=== PATIENT | male | born 1960 | race Caucasian/White ===

== ENCOUNTER 2017-02-22 09:44 | Emergency (ER) | payer OTHER, BC ==
[~2017-02-22] VITALS: Ht 177.8 cm; Wt 124.7 kg
[~2017-02-22 09:44] MED LIST: CYCLOBENZAPRINE10 MG PO; HYZAAR 100-251 EACH PO; NORCO 7.5-3251 EACH PO; OMEPRAZOLE20 MG PO; VENTOLIN HFA18 GM IH
[2017-02-22] MEDS ORDERED: HYDROCODON-ACE1 EAC8 PO (10:56)
[2017-02-22] MEDS ORDERED: MEDROL4 M1 PO (11:37)
== END 2017-02-22 12:06 | disposition home or self-care (01) ==
LOC: ED 09:44
DX: M54.5 Low back pain (principal); I10 Essential (primary) hypertension; K21.9 Gastro-esophageal reflux disease without esophagitis; Z79.899 Other long term (current) drug therapy
CPT/HCPCS: 96372; 99283; J1885

== ENCOUNTER 2020-12-09 22:49 | Emergency (ER) | payer BC ==
[~2020-12-09] VITALS: Ht 177.8 cm; Wt 120.2 kg
[~2020-12-09 22:49] MED LIST changes: +HYDROCODON-ACE1 EAC8 PO; +MEDROL4 M1 PO
[2020-12-09] MEDS ORDERED: BACTRIM DS TAB1 EACH PO (22:59)
[2020-12-09] MEDS ORDERED: HYDROCODON-ACE1 EA10 PO (22:59)
[2020-12-09] MEDS ORDERED: AUGMENTIN 875-1 EACH PO (22:59)
[2020-12-09] MEDS ORDERED: CELECOXIB200 MG PO (23:04)
[2020-12-09] MEDS ORDERED: METOPROLOL SUCC50 MG PO (23:05)
[2020-12-09] MEDS ORDERED: GABAPENTIN300 MG PO (23:05)
== END 2020-12-10 02:48 | disposition home or self-care (01) ==
LOC: ED 22:49
DX: M79.604 Pain in right leg (principal); M79.605 Pain in left leg; I10 Essential (primary) hypertension; K21.9 Gastro-esophageal reflux disease without esophagitis; Z79.899 Other long term (current) drug therapy
CPT/HCPCS: 72131; 80053; 81001; 85025; 99284-25

== ENCOUNTER 2022-07-03 12:14 | Emergency (ER) | payer BC ==
[~2022-07-03] VITALS: Ht 177.8 cm; Wt 120.2 kg
[~2022-07-03 12:14] MED LIST changes: +AUGMENTIN 875-1 EACH PO; +BACTRIM DS TAB1 EACH PO; +CELECOXIB200 MG PO; +GABAPENTIN300 MG PO; +HYDROCODON-ACE1 EA10 PO; +METOPROLOL SUCC50 MG PO
--- OUTSIDE RECORDS SUMMARY | 2022-07-03 12:16 | XMS ---
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 Gerda VISIT COUNT (12 MO.) Kofi Tsai TOTAL 1 NOTE: Visits indicate total known visits. ED/UCC VISIT TRACKING (12 MO.) 07/03/2022 12:14 [facility] TYPE: Emergency COMPLAINT: - R KNEE PAIN INPATIENT VISIT TRACKING (12 MO.) No inpatient visits to display in this time frame [id number]
[2022-07-03] MEDS ORDERED: DOXYCYCLINE HY100 MG PO (16:35)
[2022-07-03] MEDS ORDERED: CEFPROZIL500 MG PO (16:35)
== END 2022-07-03 17:01 | disposition home or self-care (01) ==
LOC: ED 12:14
DX: M70.51 Other bursitis of knee, right knee (principal); I10 Essential (primary) hypertension; K21.9 Gastro-esophageal reflux disease without esophagitis; Z79.899 Other long term (current) drug therapy
CPT/HCPCS: 10060; 99283-25

== ENCOUNTER 2023-01-22 10:01 | Emergency (ER) | payer BC ==
[~2023-01-22] VITALS: Ht 177.8 cm; Wt 126.9 kg
[~2023-01-22 10:01] MED LIST changes: +CEFPROZIL500 MG PO; +DOXYCYCLINE HY100 MG PO
[2023-01-22] MEDS ORDERED: HYDROCODON-ACE1 EAC8 PO (10:23)
[2023-01-22 10:56] LABS: BASOPHILS 0.8 % (0-2); EOSINOPHILS 2.1 % (0-6); HEMOGLOBIN 14.7 g/dL (12.0-18.0); MCH 31.2 (27-36); MCHC 33.5 g/dl (30-36); MCV 93.1 fl (81-99); MONOCYTES 6.3 % (0-12); NEUTROPHILS 64.8 % (39-80); PLATELET COUNT 290 K/uL (140-440); RBC 4.72 M/ul (4.3-5.7); RDW 13.6 (10.5-15.0)
--- OUTSIDE RECORDS SUMMARY | 2023-01-22 11:05 | XMS | Continuity of Care Document ---
Demographics + + + | Address | [address] | | | [place] [address] | + + + | Preferred Language | Unknown | + + + | Marital Status | | + + + | Christian Affiliation | Unknown | + + + | Race | White | + + + | Ethnic Group | Not or | + + + Author + + + | Author | [facility] | + + + | Organization | [facility] | + + + | Address | [address] [facility] [address] [facility] | | | [place] [address] | + + + | Phone | | + + + Care Team Providers + + + + | Care Compliance Field Technician Name | Role | Phone | + + + + Unavailable | Unavailable | + + + + Unavailable | Unavailable | + + + + Unavailable | Unavailable | + + + + Allergies No information. Encounters No information. Functional Status No information. Immunizations No information. Medications + + + + | date | description | facility | + + + + | 2022-07-03 00:00 | DOXYCYCLINE HYCLATE | [facility] | + + + + | 2022-07-03 00:00 | CEFPROZIL | [facility] | + + + + | 2022-07-03 00:00 | OMEPRAZOLE | [facility] | + + + + | 2022-07-03 00:00 | CELECOXIB | [facility] | + + + + | 2022-07-03 00:00 | GABAPENTIN | [facility] | + + + + | 2020-12-09 00:00 | AMOXICILLIN/POTASSIUM CLAV | [facility] | | | | | + + + + | 2022-07-03 00:00 | CYCLOBENZAPRINE HCL | [facility] | + + + + | 2017-02-22 00:00 | methylPREDNISolone | [facility] | + + + + | 2020-12-09 00:00 | | [facility] | | | SULFAMETHOXAZOLE/TRIMETHOPR | | | | IM DS | | + + + + | 2022-07-03 00:00 | HYDROCODONE | [facility] | | | BIT/ACETAMINOPHEN | | + + + + | 2020-12-09 00:00 | HYDROCODONE | [facility] | | | BIT/ACETAMINOPHEN | | + + + + | 2022-07-03 00:00 | HYDROCODONE | [facility] | | | BIT/ACETAMINOPHEN | | + + + + | 2022-07-03 00:00 | ALBUTEROL SULFATE | [facility] | + + + + | 2022-07-03 00:00 | METOPROLOL SUCCINATE | [facility] | + + + + | 2022-07-03 00:00 | | [facility] | | | LOSARTAN/HYDROCHLOROTHIAZID | | | | E | | + + + + Problems + + + + | date | description | facility | + + + + | 2017-02-22 00:00 | Acute low back pain | [facility] | + + + + | 2020 00:00 | Encounter for medical | [facility] | | | screening examination | | + + + + | 2020-12-09 00:00 | Cutaneous abscess of face | [facility] | + + + + | 2020-12-10 00:00 | Pain in both lower | [facility] | | | extremities | | + + + + | 2022-05-01 12:17:34 | Radiculopathy, lumbar | [facility] | | | region | | + + + + | 2022-07-03 00:00 | Septic infrapatellar | [facility] | | | bursitis of right knee | | + + + + Procedures No information. Results/Labs No information. Social History No information. Vital Signs + + +---------+---------+ | date | measurement | value | units | + + +---------+---------+ | 2022-07-03 00:00 | BMI | 38.0 | kg/m2 | + + +---------+---------+ | 2022-07-03 00:00 | BP_diastolic | 70 | mmHg | + + +---------+---------+ | 2022-07-03 00:00 | BP_systolic | 144 | mmHg | + + +---------+---------+ | 2022-07-03 00:00 | heart_rate | 74 | /min | + + +---------+---------+ | 2022-07-03 00:00 | height_metric | 177.8 | cm | + + +---------+---------+ | 2022-07-03 00:00 | height_standard | 70 | in | + + +---------+---------+ | 2022-07-03 00:00 | o2_saturation | 97 | % | + + +---------+---------+ | 2022-07-03 00:00 | respiration_rate | 18 | /min | + + +---------+---------+ | 2022-07-03 00:00 | temperature_metric | 36.67 | C | | | | | | + + +---------+---------+ | 2022-07-03 00:00 | | 98 | F | | | temperature_standar | | | | | d | | | + + +---------+---------+ | 2022-07-03 00:00 | weight_metric | 120.2 | kg | + + +---------+---------+ | 2022-07-03 00:00 | weight_standard | 265 | lb | + + +---------+---------+"
--- OUTSIDE RECORDS SUMMARY | 2023-01-22 11:05 | XMS | Continuity of Care Document ---
Demographics + + + | Address | [address] | | | [place] [address] | + + + | Preferred Language | Unknown | + + + | Marital Status | | + + + | Uatsdin Affiliation | Unknown | + + + | Race | White | + + + | Ethnic Group | Not or | + + + Author + + + | Author | [facility] | + + + | Organization | [facility] | + + + | Address | [address] [facility] [address] [facility] | | | [place] [address] | + + + | Phone | | + + + Care Team Providers + + + + | Care Core Maker Helper Name | Role | Phone | + [...] | 2022-07-03 00:00 | DOXYCYCLINE HYCLATE | [facility] | + + + + | 2022-07-03 00:00 | CEFPROZIL | [facility] | + + + + | 2022-07-03 00:00 | OMEPRAZOLE | [facility] | + + + + | 2022-07-03 00:00 | CELECOXIB | [facility] | + + + + | 2022-07-03 00:00 | GABAPENTIN | [facility] | + + + + | 2020-12-09 00:00 | AMOXICILLIN/POTASSIUM CLAV | [facility] | | | | | + + + + | 2022-07-03 00:00 | CYCLOBENZAPRINE HCL | [facility] | + + + + | 2017-02-22 00:00 | methylPREDNISolone | [facility] | + + + + | 2020-12-09 00:00 | | [facility] | | | SULFAMETHOXAZOLE/TRIMETHOPR | | | | IM DS | | + + + + | 2022-07-03 00:00 | HYDROCODONE | [facility] | | | BIT/ACETAMINOPHEN | | + + + + | 2020-12-09 00:00 | HYDROCODONE | [facility] | | | BIT/ACETAMINOPHEN | | + + + + | 2022-07-03 00:00 | HYDROCODONE | [facility] | | | BIT/ACETAMINOPHEN | | + + + + | 2022-07-03 00:00 | ALBUTEROL SULFATE | [facility] | + + + + | 2022-07-03 00:00 | METOPROLOL SUCCINATE | [facility] | + + + + | 2022-07-03 00:00 | | [facility] | | | LOSARTAN/HYDROCHLOROTHIAZID | | | | E | | + + + + Problems + + + + | date | description | facility | + + + + | 2017-02-22 00:00 | Acute low back pain | [facility] | + + + + | 2020 00:00 | Encounter for medical | [facility] | | | screening examination | | + + + + | 2020-12-09 00:00 | Cutaneous abscess of face | [facility] | + + + + | 2020-12-10 00:00 | Pain in both lower | [facility] | | | extremities | | + + + + | 2022-05-01 12:17:34 | Radiculopathy, lumbar | [facility] | | | region | | + + + + | 2022-07-03 00:00 | Septic infrapatellar | [facility] | | | bursitis of right knee [...]
[2023-01-22 11:11] LABS: ALBUMIN 3.7 g/dL (3.4-5.0); ALBUMIN/GLOBULIN RATIO 0.95 (1.1-2.4); BILIRUBIN, TOTAL 0.3 ng/dL (0.2-1.0); BUN/CREATININE RATIO 24.07 (6.0-28.6); CALCIUM 9.1 mg/dL (8.5-10.1); CREATININE, SERUM 1.08 mg/dL (0.70-1.30); PROTEIN, TOTAL 7.6 g/dL (6.4-8.2)
[2023-01-22 11:34] VITALS: BP 138/68
--- OUTSIDE RECORDS SUMMARY | 2023-01-22 11:35 | XMS ---
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 Gerda VISIT COUNT (12 MO.) 2 TOM Tsai TOTAL 2 NOTE: Visits indicate total known visits. 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
== END 2023-01-22 11:38 | disposition home or self-care (01) ==
LOC: ED 10:01
PROVIDERS: Emergency Medicine
DX: M25.561 Pain in right knee (principal); M71.21 Synovial cyst of popliteal space [Baker], right knee; I10 Essential (primary) hypertension; K21.9 Gastro-esophageal reflux disease without esophagitis; X50.3XXA Overexertion from repetitive movements, initial encounter; Z79.899 Other long term (current) drug therapy
CPT/HCPCS: 36415; 73560; 80053; 85025; 93971

== ENCOUNTER 2023-05-14 09:02 | Day surgery (SDC) | payer BC ==
[~2023-05-14] VITALS: Ht 177.8 cm; Wt 131.8 kg
[~2023-05-14 09:02] MED LIST changes: +COLCRYS0.6 MG PO; +DULOXETINE HCL20 MG PO; +FLUTICASONE PRO16 GM NAS; +VALSARTAN-HCTZ1 EAC2 PO
--- NOTE | 2023-05-14 09:20 | NUR ---
DS ROUNDS. PT APPEARED TO BE SLEEPING. DID NOT DISTURB. PROVIDED PRAYER.
[2023-05-14 09:23] VITALS: BP 149/69
[2023-05-14] MEDS ORDERED: HYDROCODON-ACE1 EA10 PO (11:45)
--- NOTE | 2023-05-14 12:06 | NUR ---
05/14/23 1206 Lovely Wang 1148 PT TO PACU FROM OR. MASK IN PLACE WITH O2 AT 6L. 1200 02 DC'D. O2 SATS REMAIN IN 90S. PT ALERT AND AWAKE. COMVERSING APPROPRIATELY. NO COMPLAINTS. 1203 ICE APPLIED TO KNEE PER ORDER. PT DENIES PAIN OR NAUSEA AT THIS TIME. WESLEYG TO R KNEE CDI. CMS WNL TO RLE
[2023-05-14 12:23] VITALS: BP 157/80
--- NOTE | 2023-05-14 12:48 | NUR ---
1225 PATIENT ARRIVED FROM PACU TO DAY SURGERY 4. PATIENT AWAKE AND ALERT. NO N/V, PATIENT HAS SENSATION, PEDEAL PULSE AND CAP REFILL LESS THAN 3 SECONDS IN RLE. RLE KNEE WRAPPED WITH ADAPTIC, ABD, AND RICK BANDAGE. NO DRAINAGE NOTED. ELEVATED KNEE WITH PILLOWS AND HAS ICE PACK ON SURGICAL SITE, BARRIER BETWEEN ICE PACK AND SKIN. PATIENT REPORTS 2/10 PAIN WHICH IS TOLERABLE. PATIENT PROVIDED ICE WATER, COFFEE, PUDDING, JELLO AND CRACKERS. PATIENT UPDATED ON PLAN OF CARE. PATIENT HAS NO FURTHER REQUESTS. CALL LIGHT WITHIN REACH, X1 SIDE RAIL UP, AT BEDSIDE.
[2023-05-14 13:46] VITALS: BP 139/72
--- NOTE | 2023-05-14 14:08 | NUR ---
1403 PATIENT SITTING UP ON BEDSIDE, REPORTS NO DIZZINESS. PATIENT ABLE TO AMBULATE TO BATHROOM AND BACK TO ROOM ON HIS OWN. PATIENT VOIDED 200 ML. PATIENT AGREEABLE TO GOING HOME, DRESSING WITH AT BEDSIDE.
--- NOTE | 2023-05-14 14:31 | NUR ---
DC INSTRUCTIONS PROVIDED TO PT AND PT'S . ALL QUESTIONS ANSWERED. PT REPORTS PAIN TO HIS RIGHT KNEE, RATES IT A 2/10, DENIES NEEDING ANYTHING FOR THIS PAIN. DENIES NAUESA. NEW ICE PACK PROVIDED. PT ABLE TO AMBULATE TO THE WHEELCHAIR AND IS TAKEN TO MEET HIS . PT INTO THE PASSENGER SIDE OF THE VEHICLE. PT THANKFUL FOR HIS CARE.
--- NOTE | 2023-05-17 17:59 | OR ---
[facility] [address], [place] [address] Signed DATE OF OPERATION: 05/14/2023 SURGEON: Tristian Barth MD PREOPERATIVE DIAGNOSIS: Lateral meniscus tear, right knee. POSTOPERATIVE DIAGNOSIS: Lateral meniscus tear, right knee. PROCEDURE PERFORMED: Right knee arthroscopy with partial lateral meniscectomy. SUPERVISOR RESEARCH KENNEL: Gricelda Bui PA-C. ANESTHESIA: General. BLOOD LOSS: Minimal. BRIEF HISTORY: Jluis is a 62-year-old gentleman with progressive worsening of pain in his knee, nonresponsive to nonoperative techniques. The risks and benefits of operative treatment were discussed with him and he elected to proceed. Once consent was obtained, he was taken to the operating room. After adequate anesthesia, he was placed on the operating room table. The left leg was flexed, abducted and externally rotated on a well-padded leg morales. The right was placed in a well-padded proximal thigh leg morales with no tourniquet. The leg was then prepped and draped in a standard sterile fashion. Standard inferolateral and superolateral portals were established and the scope was placed in the knee. ARTHROSCOPIC FINDINGS: There was extensive severe synovitis with mild chondrocalcinosis throughout the knee. The patellofemoral surfaces showed grade 2 to grade 3 chondromalacia. Medial and lateral gutter showed small osteophytes. The ACL was intact. Medial compartment showed grade 4 chondromalacia to 70% of the femur and 30% of the tibia. Lateral compartment showed grade 2 to the tibia and grade 4 to about 15% of the lateral femoral condyle in the midportion. There was a lateral tear in the meniscus. No tears were noted in the Electronically Signed By: TRISTIAN BARTH MD 05/17/23 1759 PATIENT NAME: ESHA BARRY OPERATIVE REPORT DATE OF : 58 REPORT #: [id number] PHYSICIAN: TRISTIAN BARTH MD PCP: TRAV OLSON REPORT IS CONFIDENTIAL AND NOT TO BE RELEASED WITHOUT AUTHORIZATION [facility] [address], [place] [address] Signed medial meniscus. DESCRIPTION OF OPERATION: Standard inferomedial portal was established after localization using a spinal needle. The straight biters were used to trim the meniscus tear back to a stable rim. Several large chondral flaps were debrided on the lateral femoral condyle as well. The scope was then withdrawn and all portals were closed with 3-0 nylon. The knee was injected with 60 mg of Toradol at the end of the case. The wound was dressed with Adaptic, ABDs and Adam wrap. He tolerated the procedure well. All sponge, needle, and instrument counts were correct. Tristian Barth MD BA/MODL /[id number] Copies: ~ Electronically Signed By: TRISTIAN BARTH MD 05/17/23 1759 PATIENT NAME: ESHA BARRY OPERATIVE REPORT DATE OF : 58 REPORT #: [id number] PHYSICIAN: TRISTIAN BARTH MD PCP: TRAV OLSON REPORT IS CONFIDENTIAL AND NOT TO BE RELEASED WITHOUT AUTHORIZATION
== END 2023-05-14 14:18 | disposition home or self-care (01) ==
LOC: DS 09:02
PROVIDERS: ATTEND Specialist
PROC: 0SBC4ZZ Excision of Right Knee Joint, Percutaneous Endoscopic Approach (ICD-10-PCS; principal; 2023-05-14 11:10)
DX: S83.241A Other tear of medial meniscus, current injury, right knee, initial encounter (principal); I10 Essential (primary) hypertension; M06.9 Rheumatoid arthritis, unspecified
CPT/HCPCS: 01400; J0131; J0690; J1100; J1885; J2001; J2250; J2405; J2704; J3010; J7121

== ENCOUNTER 2024-04-17 08:46 | Day surgery (SDC) | payer BC ==
[2024-04-10 09:48] VITALS: BP 144/78
[~2024-04-17] VITALS: Ht 177.8 cm; Wt 127.3 kg
[~2024-04-17 08:46] MED LIST changes: +CEFAZOLIN SODIUM 2 GM/20 ML SYR IV SCH; +CEFUROXIME250 MG PO; +DICLOFENAC SODI75 MG PO; -DULOXETINE HCL20 MG PO; +DULOXETINE HCL30 MG PO; +GABAPENTIN600 MG PO; +IBLOOD GLUCOSE TEST STRIP 1 EA TEST VI PRN; +LACTATED RINGER'S 1,000 ML IV SCH; +LIDOCAINE HCL 1% 5 ML SDV INJ ONE; +MIDAZOLAM HCL 5 MG/5 ML VIAL IV PRN; +NEURONTIN300 MG PO; -OMEPRAZOLE20 MG PO; +OXYCODONE HCL5 MG PO; +PRILOSEC OTC20 MG PO; +SENNA LAX8.6 MG PO; -VENTOLIN HFA18 GM IH; +VENTOLIN HFA18 GM INH; +XARELTO10 MG PO; +fentaNYL citrate 100 MCG/2 ML VIAL IV PRN
[2024-04-17 09:06] VITALS: BP 136/72
[2024-04-17] MEDS ORDERED: HYDROCHLOROTH12.5 MG PO (09:10)
[2024-04-17] MEDS ORDERED: propofoL 200 MG/20 ML VIAL ONE (10:22)
[2024-04-17] MEDS ORDERED: LIDOCAINE HCL 2% 5 ML SDV ONE (10:23)
--- NOTE | 2024-04-17 11:09 | NUR ---
04/17/24 1109 KYRA TOPETE 1055 PT ARRIVED TO PACU VIA STREACHER, PT NON REACTIVE TO TACTILE SIMULI. REPORT TAKEN FROM BRIDGET RICKETTS. ALL MONITORS ATTACHED. PT BREATHING EQUAL AND UNLABORED. PT ON 2L OF O2 VIA NASAL CANULLA. 1100 PT REACTIVE TO TACTILE STIMULI. PT REPORTS NO PAIN OR NAUSEA AT THIS TIME.
[2024-04-17 11:29] VITALS: BP 144/69
--- NOTE | 2024-04-17 12:09 | OR ---
[facility] [address] [place], [place] [address] Signed DATE OF OPERATION: 04/17/2024 SURGEON: Judy Muniz MD PREOPERATIVE DIAGNOSIS: Screening. POSTOPERATIVE DIAGNOSIS: Minimal internal hemorrhoid tissue. PROCEDURE: Colonoscopy without biopsy. ESTIMATED BLOOD LOSS: None. INDICATIONS: Jluis is a 63-year-old obese gentleman, asked to see me for followup colonoscopy. He said he has no lower GI complaints. There is no family history of colon cancer or polyps. I helped him with a colonoscopy and an upper endoscopy back in 2013 at the age of 53. He had a small hiatal hernia with a little bit of gastritis. The CLOtest was negative. His colonoscopy was unremarkable. We asked him to follow up in 10 years. He has been on aspirin each day because of his right knee replacement with Dr. Barth. He said he has gotten himself off the hydrocodone. He does have some chronic pain and chronic renal insufficiency. He does use some marijuana and some alcohol. He also has a full face, roth and he is obese. Consequently, we asked for monitored anesthesia care with propofol infusion. That worked out well today. In the office, I gave Jluis a pamphlet on colonoscopy. We had reviewed the nature of the test. There is risk including, but not limited to gas bloating, crampy abdominal pain, bleeding, perforation requiring surgery, and missed diagnosis. We also reviewed the written instructions for the bowel prep line by line. It is the same bowel prep that he took before. He understands an adult person has to take him home afterwards. He had expressed understanding and wished to proceed. PROCEDURE IN DETAIL: Jluis was taken into our endoscopy suite and placed in the left lateral decubitus position. He was given monitored anesthesia care with propofol infusion per our nurse utility worker production. A digital rectal exam was performed. This was unremarkable. There were no external hemorrhoids. He had good sphincter tone. There were no masses. The adult colonoscope was introduced and advanced all around into the cecum under direct Electronically Signed By: JUDY MUNIZ MD 04/17/24 1209 PATIENT NAME: ESHA BARRY OPERATIVE REPORT DATE OF : 58 REPORT #: [id number] PHYSICIAN: JUDY MUNIZ MD PCP: PAGE OLSON REPORT IS CONFIDENTIAL AND NOT TO BE RELEASED WITHOUT AUTHORIZATION [facility] [address] [place], [place] [address] Signed visualization of the camera without difficulty. His prep was good. The scope was slowly withdrawn. We could easily see the appendiceal orifice and the ileocecal valve. We took several pictures throughout for photodocumentation. There was no pathology throughout the entire colon or rectum. Upon retroflexion of the scope, he had just minimal standard internal hemorrhoid tissue. After this, the gas was suctioned out and the colonoscope removed. Jluis tolerated the procedure quite well. RECOMMENDATIONS: Jluis can follow up in 10 years for repeat screening colonoscopy. MD RICHAR Yap/MAGGIEL /[id number] cc: MD Page Yap NP Copies: JUDY MUNIZ MD ~ Electronically Signed By: JUDY MUNIZ MD 04/17/24 1209 PATIENT NAME: ESHA BARRY OPERATIVE REPORT DATE OF : 58 REPORT #: [id number] PHYSICIAN: JUDY MUNIZ MD PCP: PAGE OLSON REPORT IS CONFIDENTIAL AND NOT TO BE RELEASED WITHOUT AUTHORIZATION
== END 2024-04-17 11:25 | disposition home or self-care (01) ==
LOC: DS 08:46
PROVIDERS: ATTEND Colon & Rectal Surgery
PROC: 0DJD8ZZ Inspection of Lower Intestinal Tract, Via Natural or Artificial Opening Endoscopic (ICD-10-PCS; principal; 2024-04-17 10:20)
DX: Z12.11 Encounter for screening for malignant neoplasm of colon (principal); K64.8 Other hemorrhoids; I12.9 Hypertensive chronic kidney disease with stage 1 through stage 4 chronic kidney disease, or unspecified chronic kidney disease; N18.31 Chronic kidney disease, stage 3a; G89.4 Chronic pain syndrome; K21.9 Gastro-esophageal reflux disease without esophagitis; E66.9 Obesity, unspecified; Z68.41 Body mass index [BMI] 40.0-44.9, adult; Z79.899 Other long term (current) drug therapy; Z90.49 Acquired absence of other specified parts of digestive tract
CPT/HCPCS: J0690; J2003; J2704; J7121

== ENCOUNTER 2025-02-11 07:44 | Emergency (ER) | payer OTHER, BC ==
[~2025-02-11] VITALS: Ht 177.8 cm; Wt 127.8 kg
[~2025-02-11 07:44] MED LIST changes: -CEFAZOLIN SODIUM 2 GM/20 ML SYR IV SCH; +HYDROCHLOROTH12.5 MG PO; -IBLOOD GLUCOSE TEST STRIP 1 EA TEST VI PRN; -LACTATED RINGER'S 1,000 ML IV SCH; -LIDOCAINE HCL 1% 5 ML SDV INJ ONE; -MIDAZOLAM HCL 5 MG/5 ML VIAL IV PRN; -fentaNYL citrate 100 MCG/2 ML VIAL IV PRN
[2025-02-11] MEDS ORDERED: TOPROL XL50 MG PO (07:55)
[2025-02-11] MEDS ORDERED: LISINOPRIL10 MG PO (07:55)
[2025-02-11 09:10] VITALS: BP 148/89
== END 2025-02-11 09:11 | disposition home or self-care (01) ==
LOC: ED 07:44
DX: M79.672 Pain in left foot (principal); K21.9 Gastro-esophageal reflux disease without esophagitis; I10 Essential (primary) hypertension; Z79.899 Other long term (current) drug therapy
CPT/HCPCS: 73630; 99283